=== PATIENT | male | born 1970 | race African-American/Black ===

== ENCOUNTER 2019-07-04 14:44 | Outpatient (CLI) | payer OTHER ==
--- NOTE | 2019-07-04 15:03 | RAD ---
PA AND LATERAL CHEST: Date: 07/04/2019 HISTORY: Cough. COMPARISON: 07/04/2019 exam. FINDINGS: Heart size and mediastinum are within normal limits. The lungs appear clear of any infiltrative proce ss. No significant bony findings. IMPRESSION: No active intrathoracic disease. POS: [facility]
== END 2019-07-04 14:45 | disposition home or self-care (01) ==
LOC: SCSRAD 14:44
PROVIDERS: ATTEND Family Medicine
DX: T17.920A Food in respiratory tract, part unspecified causing asphyxiation, initial encounter (principal)
CPT/HCPCS: 71046